=== PATIENT | male | born 1940 | race Caucasian/White ===

== ENCOUNTER 2017-01-10 12:41 | Emergency (ER) | payer MEDICARE ==
[~2017-01-10] VITALS: Ht 180.3 cm; Wt 86.4 kg
[~2017-01-10 12:41] MED LIST: ALBU18HF INH; AMLO2.5T PO; AMLO5TAB2 PO; ASPI-496 PO; ASPI-621 PO; ATOR20TA9 PO; BENA20TA2 PO; BUDE10.2 INH; CEFU500T50 PO; HYDR-3240 PO; METH500T7 PO; MULT-717 PO; OXYB5TAB7 PO; SIMV10TA3 PO; SOLI5TAB PO; TIMO1DRO2 RIGHTEYE; TIOT18CA INH; TIOT4MIS2 INH; [UNRECOGNIZED DRUG - OTHER]
[2017-01-10 14:07] LABS: HEMOGLOBIN 15.3 g/dL (13.7-18.0)
[2017-01-10 14:20] LABS: BLOOD UREA NITROGEN 29 mg/dL (7-18)
[2017-01-10] MEDS ORDERED: SODIUM CHLORIDE 0.9% 1,000ML IVBOLUS ONE (17:00)
[2017-01-10] MEDS ORDERED: CEFTRIAXONE PMX 1GM/50ML 50 ML IV ONE (17:00)
[2017-01-10] MEDS ORDERED: CEFTRIAXONE PMX 1GM/50ML 50 ML ONE (17:01)
[2017-01-10 18:08] VITALS: BP 136/75
== END 2017-01-10 18:27 | disposition home or self-care (01) ==
LOC: ED 14:31
DX: J15.9 Unspecified bacterial pneumonia (principal); R04.2 Hemoptysis; I10 Essential (primary) hypertension; F41.1 Generalized anxiety disorder; J44.9 Chronic obstructive pulmonary disease, unspecified; Z87.891 Personal history of nicotine dependence
CPT/HCPCS: 36415; 71020; 80048; 82040; 83605; 84145; 85025; 85610; 87040; 93005; 96365; 99285; J0696; J7030

== ENCOUNTER 2017-01-22 07:20 | Emergency (ER) | payer MEDICARE ==
[~2017-01-22] VITALS: Ht 180.3 cm; Wt 86.3 kg
[2017-01-22 07:21] VITALS: BP 184/97
== END 2017-01-22 10:22 | disposition home or self-care (01) ==
LOC: ED 08:04
DX: K59.00 Constipation, unspecified (principal); I10 Essential (primary) hypertension; J44.9 Chronic obstructive pulmonary disease, unspecified; Z79.82 Long term (current) use of aspirin; Z87.891 Personal history of nicotine dependence
CPT/HCPCS: 74000; 99284

== ENCOUNTER 2017-03-18 10:09 | Emergency (ER) | payer MEDICARE ==
[~2017-03-18] VITALS: Ht 180.3 cm; Wt 84.0 kg
[2017-03-18] MEDS ORDERED: BUPIVACAINE 0.25% ONE (11:43)
[2017-03-18] MEDS ORDERED: LIDOCAINE 1%, 20ML ONE (11:43)
[2017-03-18] MEDS ORDERED: BACITRACIN ZINC OINT 500U/GM, 0.9 GM ONE (11:43)
[2017-03-18] MEDS ORDERED: BUPIVACAINE/PF-EPI 0.25% 1:200K INFIL ONE (12:00)
[2017-03-18] MEDS ORDERED: LIDOCAINE 1%, 20ML INFIL ONE (12:00)
[2017-03-18 14:23] VITALS: BP 164/109
== END 2017-03-18 14:25 | disposition home or self-care (01) ==
LOC: ED 10:21
DX: S81.812A Laceration without foreign body, left lower leg, initial encounter (principal); I10 Essential (primary) hypertension; J44.9 Chronic obstructive pulmonary disease, unspecified; Z87.01 Personal history of pneumonia (recurrent); Z87.891 Personal history of nicotine dependence; W01.0XXA Fall on same level from slipping, tripping and stumbling without subsequent striking against object, initial encounter; Y93.89 Activity, other specified; Y92.89 Other specified places as the place of occurrence of the external cause; Y99.8 Other external cause status
CPT/HCPCS: 13121

== ENCOUNTER 2017-03-18 17:15 | Emergency (ER) | payer MEDICARE ==
[~2017-03-18] VITALS: Ht 180.3 cm; Wt 83.2 kg
[2017-03-18 17:28] VITALS: BP 144/95
== END 2017-03-18 18:49 | disposition home or self-care (01) ==
LOC: ED 18:43
DX: S81.812D Laceration without foreign body, left lower leg, subsequent encounter (principal); I10 Essential (primary) hypertension; J44.9 Chronic obstructive pulmonary disease, unspecified; Z87.891 Personal history of nicotine dependence
CPT/HCPCS: 99284

== ENCOUNTER → 2017-03-21 | Outpatient (CLI) | payer MEDICARE | END | disposition home or self-care (01) | LOC: WOUND 13:18 | PROVIDERS: ATTEND Internal Medicine | DX: T81.31XA Disruption of external operation (surgical) wound, not elsewhere classified, initial encounter (principal); J44.9 Chronic obstructive pulmonary disease, unspecified; G47.30 Sleep apnea, unspecified; I10 Essential (primary) hypertension; Z86.73 Personal history of transient ischemic attack (TIA), and cerebral infarction without residual deficits; Z87.891 Personal history of nicotine dependence; Y92.89 Other specified places as the place of occurrence of the external cause; Y83.8 Other surgical procedures as the cause of abnormal reaction of the patient, or of later complication, without mention of misadventure at the time of the procedure; Z72.89 Other problems related to lifestyle | CPT/HCPCS: 97597; 97598; G0463; WOU0463 ==

== ENCOUNTER → 2017-03-24 | Outpatient (CLI) | payer MEDICARE | END | disposition home or self-care (01) | LOC: WOUND 11:00 | PROVIDERS: ATTEND Physician Assistant | DX: S81.812D Laceration without foreign body, left lower leg, subsequent encounter (principal); J44.9 Chronic obstructive pulmonary disease, unspecified; H40.9 Unspecified glaucoma; G47.30 Sleep apnea, unspecified; I10 Essential (primary) hypertension; Z86.73 Personal history of transient ischemic attack (TIA), and cerebral infarction without residual deficits; Z87.891 Personal history of nicotine dependence; Z72.89 Other problems related to lifestyle; Z98.42 Cataract extraction status, left eye; Z98.41 Cataract extraction status, right eye; X58.XXXD Exposure to other specified factors, subsequent encounter | CPT/HCPCS: G0463; WOU0463 ==

== ENCOUNTER → 2017-03-26 | Outpatient (CLI) | payer MEDICARE | END | disposition home or self-care (01) | LOC: WOUND 15:00 | PROVIDERS: ATTEND Internal Medicine | DX: T81.33XD Disruption of traumatic injury wound repair, subsequent encounter (principal); J44.9 Chronic obstructive pulmonary disease, unspecified; I10 Essential (primary) hypertension; Z86.73 Personal history of transient ischemic attack (TIA), and cerebral infarction without residual deficits; Z87.01 Personal history of pneumonia (recurrent); Z72.89 Other problems related to lifestyle; Z87.891 Personal history of nicotine dependence; Y83.8 Other surgical procedures as the cause of abnormal reaction of the patient, or of later complication, without mention of misadventure at the time of the procedure | CPT/HCPCS: 11042; 11045 ==

== ENCOUNTER → 2017-03-31 | Outpatient (CLI) | payer MEDICARE | END | disposition home or self-care (01) | LOC: WOUND 08:00 | PROVIDERS: ATTEND Physician Assistant | DX: T81.31XD Disruption of external operation (surgical) wound, not elsewhere classified, subsequent encounter (principal); J44.9 Chronic obstructive pulmonary disease, unspecified; G47.30 Sleep apnea, unspecified; I10 Essential (primary) hypertension; Z86.73 Personal history of transient ischemic attack (TIA), and cerebral infarction without residual deficits; Z87.891 Personal history of nicotine dependence; Z72.89 Other problems related to lifestyle; Y83.8 Other surgical procedures as the cause of abnormal reaction of the patient, or of later complication, without mention of misadventure at the time of the procedure | CPT/HCPCS: G0463; WOU0463 ==

== ENCOUNTER → 2017-04-02 | Outpatient (CLI) | payer MEDICARE | END | disposition home or self-care (01) | LOC: WOUND 07:59 | PROVIDERS: ATTEND Internal Medicine | DX: S81.812D Laceration without foreign body, left lower leg, subsequent encounter (principal); J44.9 Chronic obstructive pulmonary disease, unspecified; H40.9 Unspecified glaucoma; G47.30 Sleep apnea, unspecified; I10 Essential (primary) hypertension; Z86.73 Personal history of transient ischemic attack (TIA), and cerebral infarction without residual deficits; Z87.891 Personal history of nicotine dependence; Z72.89 Other problems related to lifestyle; Z98.41 Cataract extraction status, right eye; Z98.42 Cataract extraction status, left eye; X58.XXXD Exposure to other specified factors, subsequent encounter | CPT/HCPCS: 11042 ==

== ENCOUNTER → 2017-04-04 | Outpatient (CLI) | payer MEDICARE | END | disposition home or self-care (01) | LOC: WOUND 11:30 | PROVIDERS: ATTEND Internal Medicine Cardiovascular Disease | DX: T81.31XD Disruption of external operation (surgical) wound, not elsewhere classified, subsequent encounter (principal); J44.9 Chronic obstructive pulmonary disease, unspecified; G47.30 Sleep apnea, unspecified; I73.9 Peripheral vascular disease, unspecified; I10 Essential (primary) hypertension; Z86.73 Personal history of transient ischemic attack (TIA), and cerebral infarction without residual deficits; Z87.891 Personal history of nicotine dependence; Z72.89 Other problems related to lifestyle; Z87.01 Personal history of pneumonia (recurrent); Y83.8 Other surgical procedures as the cause of abnormal reaction of the patient, or of later complication, without mention of misadventure at the time of the procedure | CPT/HCPCS: G0463; WOU0463 ==

== ENCOUNTER → 2017-04-04 | Outpatient (CLI) | payer MEDICARE | END | disposition home or self-care (01) | LOC: CFH 07:41 | PROVIDERS: ATTEND Psychiatry & Neurology Neurology | DX: G31.9 Degenerative disease of nervous system, unspecified (principal); I73.9 Peripheral vascular disease, unspecified | CPT/HCPCS: 70551 ==

== ENCOUNTER → 2017-04-07 | Outpatient (CLI) | payer MEDICARE | END | disposition home or self-care (01) | LOC: WOUND 13:15 | PROVIDERS: ATTEND Surgery | DX: T81.31XA Disruption of external operation (surgical) wound, not elsewhere classified, initial encounter (principal); J44.9 Chronic obstructive pulmonary disease, unspecified; I10 Essential (primary) hypertension; I73.9 Peripheral vascular disease, unspecified; G47.30 Sleep apnea, unspecified; Z72.89 Other problems related to lifestyle; Z87.891 Personal history of nicotine dependence; Z86.73 Personal history of transient ischemic attack (TIA), and cerebral infarction without residual deficits; Z98.42 Cataract extraction status, left eye; Z98.41 Cataract extraction status, right eye; Y83.8 Other surgical procedures as the cause of abnormal reaction of the patient, or of later complication, without mention of misadventure at the time of the procedure | CPT/HCPCS: G0463; WOU0463 ==

== ENCOUNTER → 2017-04-09 | Outpatient (CLI) | payer MEDICARE | END | disposition home or self-care (01) | LOC: WOUND 08:15 | PROVIDERS: ATTEND Internal Medicine | DX: T81.31XD Disruption of external operation (surgical) wound, not elsewhere classified, subsequent encounter (principal); J44.9 Chronic obstructive pulmonary disease, unspecified; G47.30 Sleep apnea, unspecified; I10 Essential (primary) hypertension; I73.9 Peripheral vascular disease, unspecified; Z87.891 Personal history of nicotine dependence; Z72.89 Other problems related to lifestyle; Z86.73 Personal history of transient ischemic attack (TIA), and cerebral infarction without residual deficits; Z87.01 Personal history of pneumonia (recurrent); Y83.8 Other surgical procedures as the cause of abnormal reaction of the patient, or of later complication, without mention of misadventure at the time of the procedure | CPT/HCPCS: 97597 ==

== ENCOUNTER → 2017-04-14 | Outpatient (CLI) | payer MEDICARE | END | disposition home or self-care (01) | LOC: WOUND 11:00 | PROVIDERS: ATTEND Internal Medicine Cardiovascular Disease | DX: S81.812D Laceration without foreign body, left lower leg, subsequent encounter (principal); J44.9 Chronic obstructive pulmonary disease, unspecified; H40.9 Unspecified glaucoma; G47.30 Sleep apnea, unspecified; I10 Essential (primary) hypertension; Z86.73 Personal history of transient ischemic attack (TIA), and cerebral infarction without residual deficits; Z87.891 Personal history of nicotine dependence; Z72.89 Other problems related to lifestyle; Z98.41 Cataract extraction status, right eye; Z98.42 Cataract extraction status, left eye; X58.XXXD Exposure to other specified factors, subsequent encounter | CPT/HCPCS: G0463; WOU0463 ==

== ENCOUNTER → 2017-04-16 | Outpatient (CLI) | payer MEDICARE | END | disposition home or self-care (01) | LOC: WOUND 08:00 | PROVIDERS: ATTEND Internal Medicine | DX: L97.822 Non-pressure chronic ulcer of other part of left lower leg with fat layer exposed (principal); L97.811 Non-pressure chronic ulcer of other part of right lower leg limited to breakdown of skin; T81.33XD Disruption of traumatic injury wound repair, subsequent encounter; J44.9 Chronic obstructive pulmonary disease, unspecified; I10 Essential (primary) hypertension; I73.9 Peripheral vascular disease, unspecified; Z72.89 Other problems related to lifestyle; Z87.891 Personal history of nicotine dependence; Z86.73 Personal history of transient ischemic attack (TIA), and cerebral infarction without residual deficits; Z87.01 Personal history of pneumonia (recurrent); Z98.42 Cataract extraction status, left eye; Z98.41 Cataract extraction status, right eye; Y83.8 Other surgical procedures as the cause of abnormal reaction of the patient, or of later complication, without mention of misadventure at the time of the procedure | CPT/HCPCS: 97597 ==

== ENCOUNTER → 2017-04-23 | Outpatient (CLI) | payer MEDICARE | END | disposition home or self-care (01) | LOC: WOUND 08:45 | PROVIDERS: ATTEND Internal Medicine | DX: T81.31XD Disruption of external operation (surgical) wound, not elsewhere classified, subsequent encounter (principal); L97.811 Non-pressure chronic ulcer of other part of right lower leg limited to breakdown of skin; L97.822 Non-pressure chronic ulcer of other part of left lower leg with fat layer exposed; J44.9 Chronic obstructive pulmonary disease, unspecified; H40.9 Unspecified glaucoma; G47.30 Sleep apnea, unspecified; I10 Essential (primary) hypertension; Z86.73 Personal history of transient ischemic attack (TIA), and cerebral infarction without residual deficits; Z87.891 Personal history of nicotine dependence; Z72.89 Other problems related to lifestyle; Z98.49 Cataract extraction status, unspecified eye; Y83.8 Other surgical procedures as the cause of abnormal reaction of the patient, or of later complication, without mention of misadventure at the time of the procedure | CPT/HCPCS: 97597 ==

== ENCOUNTER → 2017-04-29 | Outpatient (CLI) | payer MEDICARE | END | disposition home or self-care (01) | LOC: WOUND 08:00 | PROVIDERS: ATTEND Internal Medicine | DX: L97.811 Non-pressure chronic ulcer of other part of right lower leg limited to breakdown of skin (principal); L97.822 Non-pressure chronic ulcer of other part of left lower leg with fat layer exposed; J44.9 Chronic obstructive pulmonary disease, unspecified; G47.30 Sleep apnea, unspecified; I10 Essential (primary) hypertension; I73.9 Peripheral vascular disease, unspecified; Z72.89 Other problems related to lifestyle; Z87.891 Personal history of nicotine dependence; Z86.73 Personal history of transient ischemic attack (TIA), and cerebral infarction without residual deficits; Z87.01 Personal history of pneumonia (recurrent) | CPT/HCPCS: 17250 ==

== ENCOUNTER → 2017-05-07 | Outpatient (CLI) | payer MEDICARE | END | disposition home or self-care (01) | LOC: WOUND 09:00 | PROVIDERS: ATTEND Internal Medicine | DX: T81.33XD Disruption of traumatic injury wound repair, subsequent encounter (principal); L97.811 Non-pressure chronic ulcer of other part of right lower leg limited to breakdown of skin; L97.822 Non-pressure chronic ulcer of other part of left lower leg with fat layer exposed; J44.9 Chronic obstructive pulmonary disease, unspecified; I10 Essential (primary) hypertension; I73.9 Peripheral vascular disease, unspecified; Z87.01 Personal history of pneumonia (recurrent); Z86.73 Personal history of transient ischemic attack (TIA), and cerebral infarction without residual deficits; Z87.891 Personal history of nicotine dependence; Z98.41 Cataract extraction status, right eye; Z98.42 Cataract extraction status, left eye; Z72.89 Other problems related to lifestyle; Y83.8 Other surgical procedures as the cause of abnormal reaction of the patient, or of later complication, without mention of misadventure at the time of the procedure | CPT/HCPCS: 97597 ==

== ENCOUNTER → 2017-05-28 | Outpatient (CLI) | payer MEDICARE | END | disposition home or self-care (01) | LOC: WOUND 09:00 | PROVIDERS: ATTEND Internal Medicine | DX: T81.31XD Disruption of external operation (surgical) wound, not elsewhere classified, subsequent encounter (principal); L97.811 Non-pressure chronic ulcer of other part of right lower leg limited to breakdown of skin; L97.822 Non-pressure chronic ulcer of other part of left lower leg with fat layer exposed; J44.9 Chronic obstructive pulmonary disease, unspecified; I10 Essential (primary) hypertension; Z72.89 Other problems related to lifestyle; I73.9 Peripheral vascular disease, unspecified; Z87.891 Personal history of nicotine dependence; Z87.01 Personal history of pneumonia (recurrent); Z86.73 Personal history of transient ischemic attack (TIA), and cerebral infarction without residual deficits; G47.30 Sleep apnea, unspecified; Y83.8 Other surgical procedures as the cause of abnormal reaction of the patient, or of later complication, without mention of misadventure at the time of the procedure | CPT/HCPCS: G0463; WOU0463 ==

== ENCOUNTER → 2017-06-04 | Outpatient (CLI) | payer MEDICARE ==
[~2017-06-04] MED LIST changes: -SOLI5TAB PO; +SOLI5TAB2 PO
== END | disposition home or self-care (01) ==
LOC: WOUND 07:57
PROVIDERS: ATTEND Internal Medicine
DX: L97.811 Non-pressure chronic ulcer of other part of right lower leg limited to breakdown of skin (principal); L97.822 Non-pressure chronic ulcer of other part of left lower leg with fat layer exposed; J44.9 Chronic obstructive pulmonary disease, unspecified; G47.30 Sleep apnea, unspecified; I73.9 Peripheral vascular disease, unspecified; I10 Essential (primary) hypertension; Z86.73 Personal history of transient ischemic attack (TIA), and cerebral infarction without residual deficits; Z87.891 Personal history of nicotine dependence; Z72.89 Other problems related to lifestyle; Z87.01 Personal history of pneumonia (recurrent)
CPT/HCPCS: G0463; WOU0463

== ENCOUNTER 2017-06-08 10:42 | Emergency (ER) | payer MEDICARE ==
[~2017-06-08] VITALS: Ht 180.3 cm; Wt 84.0 kg
[~2017-06-08 10:42] MED LIST changes: +SOLI5TAB PO; -SOLI5TAB2 PO
[2017-06-08 10:48] VITALS: BP 166/88
[2017-06-08 11:35] LABS: HEMATOCRIT 46.3 % (39.2-51.8); HEMOGLOBIN 15.5 g/dL (13.7-18.0); WHITE BLOOD COUNT 6.3 x10^3/uL (3.4-10)
[2017-06-08 11:46] LABS: BLOOD UREA NITROGEN 16 mg/dL (7-18)
[2017-06-08] MEDS ORDERED: PHENYLEPHRINE NASAL 1%, 15ML SPRAY ONE (12:59)
[2017-06-08] MEDS ORDERED: COCAINE TOPICAL SOLN 4%, 4ML ONE (12:59)
[2017-06-08] MEDS ORDERED: LIDOCAINE 1%, 20ML ONE (12:59)
[2017-06-08] MEDS ORDERED: OXYMETAZOLINE NASAL SPRAY 0.05%, 15ML NAS ONE (13:00)
[2017-06-08] MEDS ORDERED: SILVER NITRATE STICK TP ONE (13:52)
[2017-06-08] MEDS ORDERED: BACITRACIN ZINC OINT 500U/GM, 0.9 GM ONE (13:52)
== END 2017-06-08 14:14 | disposition home or self-care (01) ==
LOC: ED 12:56
DX: R04.0 Epistaxis (principal); J44.9 Chronic obstructive pulmonary disease, unspecified; I10 Essential (primary) hypertension; Z87.891 Personal history of nicotine dependence
CPT/HCPCS: 30901; 36415; 80048; 82040; 85025; 85610; 99284

== ENCOUNTER → 2017-06-11 | Outpatient (CLI) | payer MEDICARE ==
[~2017-06-11] MED LIST changes: -SOLI5TAB PO; +SOLI5TAB2 PO
== END | disposition home or self-care (01) ==
LOC: WOUND 11:00
PROVIDERS: ATTEND Internal Medicine
DX: T81.31XD Disruption of external operation (surgical) wound, not elsewhere classified, subsequent encounter (principal); J44.9 Chronic obstructive pulmonary disease, unspecified; I10 Essential (primary) hypertension; I73.9 Peripheral vascular disease, unspecified; Z87.01 Personal history of pneumonia (recurrent); Z86.73 Personal history of transient ischemic attack (TIA), and cerebral infarction without residual deficits; Z87.891 Personal history of nicotine dependence; Z98.42 Cataract extraction status, left eye; Z98.41 Cataract extraction status, right eye; Z72.89 Other problems related to lifestyle; Y83.8 Other surgical procedures as the cause of abnormal reaction of the patient, or of later complication, without mention of misadventure at the time of the procedure
CPT/HCPCS: 97597

== ENCOUNTER → 2017-06-25 | Outpatient (CLI) | payer MEDICARE | END | disposition home or self-care (01) | LOC: WOUND 13:13 | PROVIDERS: ATTEND Internal Medicine | DX: T81.31XD Disruption of external operation (surgical) wound, not elsewhere classified, subsequent encounter (principal); J44.9 Chronic obstructive pulmonary disease, unspecified; I10 Essential (primary) hypertension; G47.30 Sleep apnea, unspecified; I73.9 Peripheral vascular disease, unspecified; Z72.89 Other problems related to lifestyle; Z87.891 Personal history of nicotine dependence; Z87.01 Personal history of pneumonia (recurrent); Z86.73 Personal history of transient ischemic attack (TIA), and cerebral infarction without residual deficits; Y83.8 Other surgical procedures as the cause of abnormal reaction of the patient, or of later complication, without mention of misadventure at the time of the procedure | CPT/HCPCS: G0463; WOU0463 ==

== ENCOUNTER 2017-08-03 20:42 | Emergency (ER) | payer MEDICARE ==
[~2017-08-03] VITALS: Ht 180.3 cm; Wt 87.3 kg
[2017-08-03 20:43] VITALS: BP 163/88
[2017-08-03] MEDS ORDERED: CEFAZOLIN 1,000 MG IM ONE (21:30)
[2017-08-03] MEDS ORDERED: CEFAZOLIN 1,000 MG ONE (21:33)
[2017-08-03] MEDS ORDERED: SULFAMETH./TRIMETHOPRIM DS 800MG/160MG TABLET ONE (21:33)
[2017-08-03] MEDS ORDERED: CEPHALEXIN 500 MG CAPSULE ONE (21:33)
[2017-08-03] MEDS ORDERED: SULFAMETH./TRIMETHOPRIM DS 800MG/160MG TABLET PO ONE (22:00)
== END 2017-08-03 22:11 | disposition home or self-care (01) ==
LOC: ED 21:07
DX: L03.114 Cellulitis of left upper limb (principal); J44.9 Chronic obstructive pulmonary disease, unspecified; I10 Essential (primary) hypertension; Z87.891 Personal history of nicotine dependence
CPT/HCPCS: 96372; 99283; J0690

== ENCOUNTER → 2017-09-30 | Outpatient (CLI) | payer MEDICARE | END | disposition home or self-care (01) | LOC: WOUND 09:57 | PROVIDERS: ATTEND Internal Medicine | DX: S61.411A Laceration without foreign body of right hand, initial encounter (principal); J44.9 Chronic obstructive pulmonary disease, unspecified; I10 Essential (primary) hypertension; Z87.891 Personal history of nicotine dependence; X58.XXXA Exposure to other specified factors, initial encounter; Y93.89 Activity, other specified; Y92.89 Other specified places as the place of occurrence of the external cause; Y99.8 Other external cause status | CPT/HCPCS: 97597; G0463; WOU0463 ==

== ENCOUNTER → 2017-10-07 | Outpatient (CLI) | payer MEDICARE | END | disposition home or self-care (01) | LOC: WOUND 08:31 | PROVIDERS: ATTEND Internal Medicine | DX: S65.21 Laceration of superficial palmar arch (principal); S61.401D Unspecified open wound of right hand, subsequent encounter; J44.9 Chronic obstructive pulmonary disease, unspecified; I10 Essential (primary) hypertension; Z87.891 Personal history of nicotine dependence; X58.XXXD Exposure to other specified factors, subsequent encounter | CPT/HCPCS: 97597 ==

== ENCOUNTER → 2017-10-21 | Outpatient (CLI) | payer MEDICARE | END | disposition home or self-care (01) | LOC: WOUND 09:18 | PROVIDERS: ATTEND Internal Medicine | DX: S65.21 Laceration of superficial palmar arch (principal); J44.9 Chronic obstructive pulmonary disease, unspecified; I10 Essential (primary) hypertension; Z87.891 Personal history of nicotine dependence; Z86.73 Personal history of transient ischemic attack (TIA), and cerebral infarction without residual deficits; X58.XXXD Exposure to other specified factors, subsequent encounter | CPT/HCPCS: G0463; WOU0463 ==

== ENCOUNTER → 2018-02-02 | Outpatient (CLI) | payer MEDICARE ==
[~2018-02-02] MED LIST changes: +ATOR40TA78 PO; +SENN1TAB7 PO
== END | disposition home or self-care (01) ==
LOC: CFH 14:05
PROVIDERS: ATTEND Family Medicine
DX: I71.9 Aortic aneurysm of unspecified site, without rupture (principal); R91.8 Other nonspecific abnormal finding of lung field
CPT/HCPCS: 71046

== ENCOUNTER → 2018-03-09 | Outpatient (CLI) | payer MEDICARE | LOC: CFH 15:18 | PROVIDERS: ATTEND Family Medicine | DX: J84.10 Pulmonary fibrosis, unspecified (principal); I77.810 Thoracic aortic ectasia | CPT/HCPCS: 71046 ==

== ENCOUNTER → 2018-05-20 | Outpatient (CLI) | payer MEDICARE ==
[~2018-05-20] MED LIST changes: -AMLO2.5T PO; +AMLO2.5T3 PO; -AMLO5TAB2 PO; +AMLO5TAB7 PO; -BENA20TA2 PO; +BENA20TA4 PO; -SENN1TAB7 PO; +SENN1TAB8 PO
== END | disposition home or self-care (01) ==
LOC: WOUND 08:48
PROVIDERS: ATTEND Internal Medicine
DX: S51.012A Laceration without foreign body of left elbow, initial encounter (principal); S81.811A Laceration without foreign body, right lower leg, initial encounter; J44.9 Chronic obstructive pulmonary disease, unspecified; I10 Essential (primary) hypertension; G47.30 Sleep apnea, unspecified; Z86.73 Personal history of transient ischemic attack (TIA), and cerebral infarction without residual deficits; Z87.891 Personal history of nicotine dependence; Z98.41 Cataract extraction status, right eye; Z98.42 Cataract extraction status, left eye; W18.30XA Fall on same level, unspecified, initial encounter; Y93.01 Activity, walking, marching and hiking; Y92.89 Other specified places as the place of occurrence of the external cause; Y99.8 Other external cause status
CPT/HCPCS: 97597; 97598; G0463; WOU0463

== ENCOUNTER → 2018-06-02 | Outpatient (CLI) | payer MEDICARE | END | disposition home or self-care (01) | LOC: WOUND 10:58 | PROVIDERS: ATTEND Internal Medicine Infectious Disease | DX: S81.811D Laceration without foreign body, right lower leg, subsequent encounter (principal); J44.9 Chronic obstructive pulmonary disease, unspecified; I10 Essential (primary) hypertension; G47.30 Sleep apnea, unspecified; Z87.891 Personal history of nicotine dependence; Y83.8 Other surgical procedures as the cause of abnormal reaction of the patient, or of later complication, without mention of misadventure at the time of the procedure | CPT/HCPCS: G0463; WOU0463 ==

== ENCOUNTER 2018-09-15 08:42 | Emergency (ER) | payer MEDICARE ==
[~2018-09-15] VITALS: Ht 177.8 cm; Wt 76.0 kg
[~2018-09-15 08:42] MED LIST changes: +AMLO-150 PO; -AMLO5TAB7 PO; -ASPI-621 PO; +ASPI81TA45 PO; +ATOR20TA37 PO; -ATOR20TA9 PO
[2018-09-15 08:46] VITALS: BP 141/77
[2018-09-15] MEDS ORDERED: GUAI600T31 PO (09:05)
[2018-09-15] MEDS ORDERED: SODI30SP NAS (09:06)
--- NOTE | 2018-09-15 09:22 | NUR ---
BEDSIDE SBAR REPORT RECEIVED FROM [facility] [place]. PT CARE ASSUMED. PT DENIES ANY MEDICAL COMPLAINTS AT THIS TIME. PT STATES "I GUESS I WAS ACTING CRAZY EARLIER, BUT I WAS IN PAIN." PT IN GOWN AND ON GURNEY WITH CONTINUOUS SPO2 MONITORING. PT INSTRUCTED EMERGENCY WORKER LIGHT USE AND FALL PRECAUTIONS IN PLACE. PT FREQUENTLY CALLING OUT INTO HALLWAY ASKING IF SOMEONE IS TALKING TO HIM. PT REORIENTED TO SITUATION. PT VERBALLY ACKNOWLEDGED UNDERSTANDING.
[2018-09-15 10:24] LABS: BASOPHILS # (AUTO) 0.03 x10^3/uL (0-0.1); BASOPHILS % (AUTO) 1 % (0-1); EOSINOPHILS # (AUTO) 0.11 x10^3/uL (0-0.4); EOSINOPHILS % (AUTO) 2 % (1-7); LYMPHOCYTES # (AUTO) 1.36 x10^3/uL (1-3.4); LYMPHOCYTES % (AUTO) 20 % (22-44); MD NO; MEAN CORPUSCULAR HEMOGLOBIN 31.3 pg (27.5-34.5); MEAN CORPUSCULAR HGB CONC 33.9 g/dL (33.2-36.2); MEAN CORPUSCULAR VOLUME 92.1 fL (81-97); MEAN PLATELET VOLUME 9.3 fL (7.4-10.4); MONOCYTES % (AUTO) 9 % (2-9); NEUTROPHILS % (AUTO) 70 % (42-75); PLATELET COUNT 160 x10^3/uL (130-400); RED BLOOD COUNT 4.58 x10^6/uL (4.38-5.82); RED CELL DISTRIBUTION WIDTH 13.8 % (9.4-14.8)
[2018-09-15 10:42] LABS: ALANINE AMINOTRANSFERASE 26 U/L (12-78); ALBUMIN 3.1 g/dL (3.4-5.0); ANION GAP 6 mmol/L (5-15); CALCIUM 8.5 mg/dL (8.5-10.1); CHLORIDE 108 mmol/L (98-107)
[2018-09-15 10:44] LABS: ALKALINE PHOSPHATASE 87 U/L (45-117); BILIRUBIN,TOTAL 0.8 mg/dL (0.2-1.0); TOTAL PROTEIN 6.6 g/dL (6.4-8.2)
[2018-09-15 10:46] LABS: INTERNATIONAL NORMALIZED RATIO 1.06 (0.93-1.1); PROTHROMBIN TIME 11.2 Seconds (9.6-11.5)
[2018-09-15 10:49] LABS: ACETAMINOPHEN < 2 mcg/mL (10-30); SALICYLATE LEVEL < 1.7 mg/dL (2.8-20.0)
--- NOTE | 2018-09-15 11:04 | NUR ---
ALL RESULTS RETURNED, CHART PLACED FOR RECHECK. SW CALLED TO INVOLVE IN PT CARE AND PLANNING. PT REMOVED ALL MONITORS, "THEYA RE VERY ANNOYING AND I HAVE HAD THEM ON FOR OVER 3 HOURS NOW. HOW LONG ARE YOU GOING TO KEEP ME HERE AND CAN YOU FIX ALL OF MY PROBLEMS. I HAVE A LIST OF ALL OF THE THINGS THAT ARE BROKEN." PT ORIENTED TO SITUATION AND WAITING FOR TEST RESULTS AND ADDITIONAL RESOURCES. PT SPOUSE WAS AT BEDSIDE PREVIOUSLY BUT LEFT DUE TO PT INCREASED AGITATION WHEN SPOUSE WAS PRESENT. PT SITTING ON END OF GURNEY WITH PERSONAL CANE IN HAND ASKING FOR UPDATES.
[2018-09-15] MEDS ORDERED: ZIPRASIDONE 20 MG INJ IM ONE ×4 (11:16→16:30)
--- NOTE | 2018-09-15 11:27 | NUR ---
pt getting dressed and yelling at staff for keeping him here for over 4 hours and doing nothing. pt holding cane and pacing room. pt attempting to leave, erp notified, pt medicated per mar for increased agitation. pt spouse in department with sw discussing poc for continued care.
--- NOTE | 2018-09-15 11:45 | NUR ---
SBAR REPORT GIVEN TO KUN Manzanares RN.
--- NOTE | 2018-09-15 11:49 | NUR ---
ASSUMED CARE OF PT. PT REMINDED OF IMPORTANCE OF STAYING IN BED AND CALLING FOR ASSITANCE WHEN WANTING TO AMBULATE. PT REMINDED OF FALL PREVENTION MEASURES.
--- NOTE | 2018-09-15 12:08 | NUR ---
PT REFUSING VITALS SIGNS AT THIS TIME. PT INSTRUCTED ON HOW TO USE CALL LIGHT WHEN NECESSARY. SW AT BEDSIDE.
--- NOTE | 2018-09-15 12:38 | NUR ---
PT AT THIS TIME REFUSING RN TO TAKE VITALS, PER SW PT TO HAVE HOSPICE EVAL.
--- NOTE | 2018-09-15 13:41 | NUR ---
Pt given po fluids. Awaiting hospice team to return at this time.
--- NOTE | 2018-09-15 14:28 | NUR ---
pt given snacks.
--- NOTE | 2018-09-15 14:33 | NUR ---
PT GIVEN MEAL TRAY AND ASSISTED WITH MEAL.
[2018-09-15] MEDS ORDERED: ONDANSETRON ODT 4 MG PO PRN (15:00)
[2018-09-15] MEDS ORDERED: ENOXAPARIN 40 MG/0.4 ML SQ SCH ×2 (15:00→16:45)
[2018-09-15] MEDS ORDERED: ACETAMINOPHEN 325 MG TABLET PO PRN (15:00)
--- NOTE | 2018-09-15 16:24 | NUR ---
Pt given 20 mg of geodon after attempting to hit staff with cane. Deftu at bedside requesting medications be given.
[2018-09-15 16:58] LABS: AMPHETAMINE SCREEN, URINE Negative (Negative); BARBITURATE SCREEN, URINE Negative (Negative); BENZODIAZEPINE SCREEN, URINE Negative (Negative); CANNABINOID SCREEN, URINE Negative (Negative); COCAINE SCREEN, URINE Negative (Negative); METHADONE SCREEN, URINE Negative (Negative); OPIATE SCREEN, URINE Negative (Negative)
[2018-09-15 17:01] LABS: CULTURE INDICATED? YES; MICROSCOPIC INDICATED
== END 2018-09-15 16:38 | disposition other institution (70) ==
LOC: ED 12:56 → SUATTDRO 14:01 → EDIP 15:34 → UNDOADMIN 15:34 → ED 16:38
PROVIDERS: ATTEND Internal Medicine
DX: F03.91 Unspecified dementia, unspecified severity, with behavioral disturbance (principal); R62.7 Adult failure to thrive; I10 Essential (primary) hypertension; F41.1 Generalized anxiety disorder; J44.9 Chronic obstructive pulmonary disease, unspecified; Z86.73 Personal history of transient ischemic attack (TIA), and cerebral infarction without residual deficits; R51 Headache
CPT/HCPCS: 36415; 70450; 71045; 80053; 80307; 80329; 81001; 82140; 83605; 85025; 85610; 85730; 87086; 93005; 96372; 99284; J3486; 99285; G0480

== ENCOUNTER 2018-09-15 15:37 | Inpatient (IN) | payer OTHER ==
[~2018-09-15] VITALS: Ht 177.8 cm; Wt 70.3 kg
[~2018-09-15 15:37] MED LIST changes: -AMLO2.5T3 PO; +AMLO2.5T5 PO; -BENA20TA4 PO; +BENA20TA54 PO; +GUAI600T31 PO; +SODI30SP NAS
[2018-09-15] MEDS ORDERED: TRAZODONE 50MG TABLET PO PRN (16:30)
[2018-09-15] MEDS ORDERED: ONDANSETRON ODT 4 MG PO PRN (16:30)
[2018-09-15] MEDS ORDERED: ACETAMINOPHEN 325 MG TABLET PO PRN (16:30)
[2018-09-15] MEDS ORDERED: MORPHINE SULFATE 4 MG/ML, 1ML IVPush PRN (16:30)
[2018-09-15] MEDS ORDERED: ALBUTEROL SULFATE 2.5 MG/3 ML NPPB PRN (17:00)
[2018-09-15] MEDS ORDERED: SENNA/DOCUSATE TABLET PO PRN (17:00)
[2018-09-15] MEDS ORDERED: PLEASE ENTER HEIGHT AND WEIGHT MC SCH ×2 (17:00)
[2018-09-15] MEDS: BUDESONIDE 0.5 MG/2 ML INHA HHN SCH (18:30)
[2018-09-15] MEDS: ALBUTEROL SULFATE 2.5 MG/3 ML HHN SCH (18:30)
[2018-09-15 19:12] VITALS: BP 118/78
[2018-09-15] MEDS: IPRATROPIUM 0.5 MG/2.5 ML INHA HHN SCH (21:00)
[2018-09-15] MEDS ORDERED: RISPERIDONE 0.5 MG TABLET PO SCH (21:00)
[2018-09-15] MEDS: AMLODIPINE 2.5 MG TABLET PO SCH (21:39)
[2018-09-15] MEDS: QUETIAPINE 25MG TABLET PO SCH (21:39)
[2018-09-16] MEDS: ALBUTEROL SULFATE 2.5 MG/3 ML HHN SCH ×5 (00:30→22:01)
[2018-09-16 01:15] VITALS: BP 110/72
[2018-09-16] MEDS: IPRATROPIUM 0.5 MG/2.5 ML INHA HHN SCH ×4 (06:00→19:43)
[2018-09-16] MEDS: BUDESONIDE 0.5 MG/2 ML INHA HHN SCH ×2 (06:30→18:30)
[2018-09-16] MEDS: AMLODIPINE 2.5 MG TABLET PO SCH ×2 (09:00→20:39)
[2018-09-16] MEDS: TIMOLOL OPHTH 0.5%, 5ML RIGHTEYE SCH (09:00)
[2018-09-16] MEDS: QUETIAPINE 25MG TABLET PO SCH ×2 (09:00→20:39)
[2018-09-16] MEDS: BENAZEPRIL 20 MG TABLET PO SCH (09:00)
[2018-09-16] MEDS: ZIPRASIDONE 20 MG INJ IM PRN (13:41)
[2018-09-16] MEDS ORDERED: LORazepam 2 MG/ML, 1ML IM PRN ×2 (14:30)
[2018-09-16 18:54] VITALS: BP 108/77
[2018-09-17] MEDS: BUDESONIDE 0.5 MG/2 ML INHA HHN SCH ×2 (03:32→18:30)
[2018-09-17] MEDS: IPRATROPIUM 0.5 MG/2.5 ML INHA HHN SCH ×4 (03:32→21:00)
[2018-09-17] MEDS: ALBUTEROL SULFATE 2.5 MG/3 ML HHN SCH ×4 (03:32→22:58)
[2018-09-17 08:00] VITALS: BP 129/78
[2018-09-17] MEDS: ZIPRASIDONE 20 MG INJ IM PRN ×2 (09:21→12:40)
[2018-09-17] MEDS: BENAZEPRIL 20 MG TABLET PO SCH (11:00)
[2018-09-17] MEDS: AMLODIPINE 2.5 MG TABLET PO SCH ×2 (11:01→21:00)
[2018-09-17] MEDS: QUETIAPINE 25MG TABLET PO SCH (11:01)
[2018-09-17] MEDS: TIMOLOL OPHTH 0.5%, 5ML RIGHTEYE SCH (11:02)
[2018-09-17 13:00] VITALS: BP 136/80
[2018-09-17] MEDS ORDERED: PHARMACY INSTRUCTION MC PRN (17:00)
[2018-09-17 19:36] VITALS: BP 130/77
[2018-09-17] MEDS: RISPERIDONE 0.5 MG TABLET PO SCH (21:00)
[2018-09-17] MEDS: HALDOL 2 MG/ML PO PRN (22:49)
[2018-09-18 00:25] VITALS: BP 124/70
[2018-09-18] MEDS: ALBUTEROL SULFATE 2.5 MG/3 ML HHN SCH (04:42)
[2018-09-18] MEDS: IPRATROPIUM 0.5 MG/2.5 ML INHA HHN SCH (04:42)
[2018-09-18] MEDS: BUDESONIDE 0.5 MG/2 ML INHA HHN SCH (04:42)
[2018-09-18 08:06] VITALS: BP 138/78
[2018-09-18] MEDS: HALDOL 2 MG/ML PO PRN ×2 (10:00→14:17)
[2018-09-18] MEDS: AMLODIPINE 2.5 MG TABLET PO SCH (10:08)
[2018-09-18] MEDS: BENAZEPRIL 20 MG TABLET PO SCH (10:08)
[2018-09-18] MEDS: RISPERIDONE 0.5 MG TABLET PO SCH (10:08)
[2018-09-18] MEDS: TIMOLOL OPHTH 0.5%, 5ML RIGHTEYE SCH (10:08)
[2018-09-18] MEDS ORDERED: TRAZ50TA66 PO (11:33)
[2018-09-18] MEDS ORDERED: HALDOL 2 MG/ML PO (11:33)
[2018-09-18] MEDS ORDERED: TRAM50TA2 PO (11:33)
[2018-09-18 13:36] VITALS: BP 130/89
== END 2018-09-18 15:02 | disposition hospice, home (50) | DRG 884 ==
LOC: 3NW 15:37
PROVIDERS: ADMIT Internal Medicine; ATTEND Internal Medicine
DX: F01.51 Vascular dementia, unspecified severity, with behavioral disturbance (principal); G93.41 Metabolic encephalopathy; F60.0 Paranoid personality disorder; H35.30 Unspecified macular degeneration; I10 Essential (primary) hypertension; J44.9 Chronic obstructive pulmonary disease, unspecified; N40.0 Benign prostatic hyperplasia without lower urinary tract symptoms; Z66 Do not resuscitate; R63.0 Anorexia; R63.4 Abnormal weight loss; S80.922A Unspecified superficial injury of left lower leg, initial encounter; X58.XXXA Exposure to other specified factors, initial encounter; Z68.22 Body mass index [BMI] 22.0-22.9, adult; Y93.89 Activity, other specified; Z86.73 Personal history of transient ischemic attack (TIA), and cerebral infarction without residual deficits; Y92.89 Other specified places as the place of occurrence of the external cause
CPT/HCPCS: 99285; G0378; J3486; Q0162